=== PATIENT | female | born 1960 | race Caucasian/White ===

== ENCOUNTER 2016-12-04 19:18 | Emergency (ER) | payer OTHER ==
[~2016-12-04] VITALS: Ht 170.2 cm; Wt 115.0 kg
[~2016-12-04 19:18] MED LIST: CYCL5TAB PO; IBUP800T23 PO; LOVA20TA PO; MINO100T PO
[2016-12-04 19:23] VITALS: BP 124/74; PULSE 77; RESP 18; TEMP 98.2; O2SAT 97
[2016-12-04] MEDS ORDERED: methylPREDNISolone SOD SUCC 125 MG/2 ML VIAL IM ONE (20:15)
[2016-12-04] MEDS ORDERED: PRED20 PO (20:16)
--- NOTE | 2016-12-04 20:16 | PD ---
HPI Chief Complaint: Skin Problem Time Seen by Provider: 20:11 Travel History International Travel<30 days: No Contact w/Intl Traveler<30days: No Traveled to known affect area: No History of Present Illness HPI Patient is a 56-year-old male presenting with a rash. Present for 1 week. It started on her arms and has spread to her abdomen, chest and bilateral thighs. It is pruritic. She denies any discharge or drainage. She denies any pain or burning sensation. Denies any environmental changes. Has a remote history of asthma as a child but not an adult, no eczema history. She used OTC cortisone today with little relief. No other attempts at palliation due to Benadryl allergy. No one else in the house has similar lesions. She denies any difficulty breathing or wheezing. The last 2-3 days she has had a mild cold with dry cough, nasal congestion and runny nose but states that this has been improving. She denies any chest tightness. She denies fevers. She denies any travel or insect bites. [facility] Past Medical History Medical History: Denies Significant Hx Diminished Hearing: No Immunizations Current: Yes Tetanus Vaccination: > 5 Years Influenza Vaccination: No ?: Not Past Surgical History Other Surgery: Yes (SKIN CANCER REMOVAL) Social History Alcohol Use: Yes (SOCIALLY) Tobacco Use: No Substance Use: No Allergies-Medications (Allergen,Severity, Reaction): Coded Allergies: Benadryl (Verified Allergy, Severe, 12/04/16) Reported Meds & Prescriptions Reported Meds & Active Scripts Active Prednisone 20 Mg Tab 40 Mg PO DAILY 5 Days Review of Systems Except as stated in HPI: all other systems reviewed are Neg Physical Exam Narrative GENERAL: Well-developed and well-nourished adult female in no acute distress. SKIN: Patient has a macular papular lesion on the medial surface of the bilateral upper arms as well as on the abdomen and some on the breast. There is no warmth or signs of cellulitis. No drainage. No intertriginous or interdigitary lesions. On the bilateral medial thighs or similar lesions with some small vesicular lesions as well suggestive of contact dermatitis. None of these are dermatomal. Good turgor without tenting. HEAD: Normocephalic and atraumatic. EYES: PERRL bilaterally, 5mm. EOMI bilaterally. No injection or icterus present. No proptosis. Lids without edema or erythema. ENT: Bilateral ear canals are non-edematous/non-erythematous without otorrhea. Bilateral TMs have intact landmarks and without distortion, perforation, air- fluid level or erythema. Nasal mucosa pink and moist without discharge, septum intact and midline. Buccal mucosa pink and moist. Oropharynx free of erythema, tonsillar hypertrophy, masses, swelling, asymmetry and exudates. Uvula midline and airway patent. NECK: Supple, no meningeal signs. Trachea midline, no JVD. No cervical or facial lymphadenopathy. CARDIOVASCULAR: Regular rate and rhythm without murmurs, rubs, clicks or gallops. Radial and posterior tibial pulses 2+ bilaterally. No pedal edema. RESPIRATORY: Clear to auscultation bilaterally with symmetrical rise and fall, no distress or use of accessory muscles. No stridor, tripoding or drooling. Speaks in full sentences. MUSCULOSKELETAL: No gait disturbances. Patient freely moving all four extremities spontaneously. Extremities without clubbing, cyanosis, or edema. No obvious deformities. NEUROLOGIC: CN II-XII grossly intact. Awake and alert. Motor grossly within normal limits. Normal speech. PSYCHIATRIC: Appropriate mood and affect; insight and judgment normal. *Patient was examined in the presence of a nurse, Cori, at all times* Data Data Last Documented VS Vital Signs Date Time Temp Pulse Resp B/P Pulse Ox O2 Delivery O2 Flow Rate FiO2 12/04/16 19:49 12/04/16 19:23 98.2 77 18 97 Orders Methylprednisolone So Succ Inj (Solumedr (12/04/16 20:15) MDM Medical Decision Making Medical Screen Exam Complete: Yes Emergency Medical Condition: Yes Differential Diagnosis Contact dermatitis versus dermatitis versus tinea versus Raad versus scabies unlikely versus shingles unlikely Narrative Course Patient is a 56-year-old female with a pruritic lesion over the arms, abdomen, chest wall in bilateral thighs. It is suggestive of contact dermatitis. She is afebrile and nontoxic-appearing. She's had a cold for the last 2 days which has been resolving, his rashes are present for one week. She knows of no environmental changes however given the distribution I believe is most likely due to something waited to clothing as it is only in areas that are covered. The signs of raad or tinea. Patient given Solu-Medrol 125 mg IM which has helped with the itching. Patient will be discharged with prednisone prescription for 5 days. Recommend attempt to discover what the environmental exposure could've been. Patient also given prescription for triamcinolone ointment as she cannot take Benadryl. Recommend follow-up with PCP or client specialist in one to 2 days.See discharge paperwork for further instructions. The plan was discussed with the patient who acknowledged their understanding and agreement. Reinforced the follow-up with primary care is critically important. Patient instructed on emergent conditions that should prompt return to ED. Diagnosis Primary Impression: Contact dermatitis Qualified Code: L25.9 - Contact dermatitis, unspecified contact dermatitis type, unspecified trigger Patient Instructions: Contact Dermatitis (ED), General Instructions Additional Instructions: Take medication as prescribed Try to identify triggers Wash area with cold water and mild non-scented soaps only Avoid scratching or picking at lesions Follow-up with PCP or client specialist in one to 2 days Return to the ED for any acute worsening of symptoms Med/Other Pt SpecificInfo: Prescription(s) given Scripts Prednisone 20 Mg Tab40 Mg PO DAILY 5 Days Prov:Mayco Diggs MD 12/04/16 Disposition: 01 DISCHARGE HOME Condition: Stable Kevin Starks III Dec 04, 2016 20:15
[2016-12-04] MEDS ORDERED: TRIAM.1%T TOPICAL (21:43)
== END 2016-12-04 21:48 | disposition home or self-care (01) ==
LOC: PHEFT 19:18
DX: L29.9 Pruritus, unspecified (principal); L25.9 Unspecified contact dermatitis, unspecified cause
CPT/HCPCS: 96372; 99282; J2930